=== PATIENT | male | born 1980 | race African-American/Black ===

== ENCOUNTER → 2024-01-16 | Outpatient (CLI) | payer OTHER, SELFPAY | END | disposition home or self-care (01) | PROVIDERS: Referring Provider Ophthalmology; Visit Provider Ophthalmology | DX: H49.21 Sixth [abducent] nerve palsy, right eye (principal); H53.2 Diplopia | CPT/HCPCS: 36415 ==

== ENCOUNTER → 2024-01-30 | Outpatient (CLI) | payer OTHER, SELFPAY | END | disposition home or self-care (01) | PROVIDERS: Referring Provider Ophthalmology; Visit Provider Ophthalmology | DX: H49.21 Sixth [abducent] nerve palsy, right eye (principal); H53.2 Diplopia | CPT/HCPCS: 70553; A9575 ==